=== PATIENT | female | born 1955 | race Caucasian/White ===

== ENCOUNTER 2020-12-07 15:58 | Inpatient (IN) | payer SELFPAY ==
[2020-12-07 18:14] LABS: BASO % 0.9 % (0-2.0); EOS % 1.5 % (0-4.5); HEMATOCRIT 38.9 % (32.4-45.2); HEMOGLOBIN 12.5 GM/dL (10.7-15.3); LYMPH % 29.3 % (8-40); MCH 26.4 pg (25.7-33.7); MCHC 32.1 g/dl (32.0-36.0); MEAN CELL VOLUME 82.1 fl (80-96); MEAN PLT VOLUME 8.8 fl (7.5-11.1); MONO % 6.2 % (3.8-10.2); NEUT % 62.1 % (42.8-82.8); PLATELET COUNT 216 10^3/uL (134-434); RBC 4.74 M/mm3 (3.60-5.2); RDW 17.1 % (11.6-15.6); WHITE BLOOD COUNT 7.6 K/mm3 (4.0-10.0)
[2020-12-07 18:21] LABS: CHLORIDE 108 mmol/L (98-107); SODIUM 142 mmol/L (136-145)
[2020-12-07 18:23] LABS: CALCIUM 8.9 mg/dL (8.5-10.1)
[2020-12-07 18:24] LABS: ALBUMIN 3.5 g/dl (3.4-5.0); ANION GAP 8 MMOL/L (8-16); BLOOD UREA NITROGEN 14.3 mg/dL (7-18); CO2 26 mmol/L (21-32); GLUCOSE,RANDOM 94 mg/dL (74-106)
[2020-12-07 18:27] LABS: CREATININE 0.9 mg/dL (0.55-1.3); SGOT/AST 38 U/L (15-37); SGPT/ALT 45 U/L (13-61)
[2020-12-07 18:29] LABS: BILIRUBIN,TOTAL 0.6 mg/dL (0.2-1); TOT PROT 8.4 g/dl (6.4-8.2)
[2020-12-07 18:30] LABS: ALK PHOS 66 U/L (45-117)
[2020-12-07 18:32] LABS: N-TERMINAL BNP 1635.1 pg/ml (5-125)
[2020-12-08 00:30] VITALS: BMI 38.7
[2020-12-08 08:17] LABS: BASO % 0.5 % (0-2.0); EOS % 1.9 % (0-4.5); HEMATOCRIT 40.7 % (32.4-45.2); HEMOGLOBIN 13.1 GM/dL (10.7-15.3); LYMPH % 36.8 % (8-40); MCH 26.7 pg (25.7-33.7); MCHC 32.1 g/dl (32.0-36.0); MEAN CELL VOLUME 83.2 fl (80-96); MEAN PLT VOLUME 9.5 fl (7.5-11.1); MONO % 5.7 % (3.8-10.2); NEUT % 55.1 % (42.8-82.8); PLATELET COUNT 202 10^3/uL (134-434); RDW 17.5 % (11.6-15.6); WHITE BLOOD COUNT 7.3 K/mm3 (4.0-10.0)
[2020-12-08 08:42] LABS: CALCIUM 8.8 mg/dL (8.5-10.1)
[2020-12-08 08:43] LABS: ALBUMIN 3.5 g/dl (3.4-5.0); BLOOD UREA NITROGEN 14.4 mg/dL (7-18); MAGNESIUM 2.3 mg/dL (1.8-2.4)
[2020-12-08 08:46] LABS: CREATININE 0.9 mg/dL (0.55-1.3); PHOSPHOROUS 3.8 mg/dL (2.5-4.9)
[2020-12-08 08:47] LABS: TOT PROT 8.6 g/dl (6.4-8.2)
[2020-12-08] MEDS: ENOXAPARIN NA (PORCINE) 40 MG/0.4 ML DISP.SYRIN SQ SCH (09:27)
[2020-12-08] MEDS: FUROSEMIDE 40 MG/4 ML INJECTABLE VIAL IVPUSH SCH (09:28)
[2020-12-08] MEDS: LISINOPRIL 10 MG TABLET PO SCH (09:28)
[2020-12-08] MEDS: ASPIRIN COATED 81 MG TABLET.EC PO SCH (09:28)
[2020-12-08] MEDS ORDERED: PNEUMOC 13-VAL CONJ-DIP CRM/PF 0.5 ML DISP.SYRIN IM ONE (10:00)
[2020-12-08] MEDS: metoPROLOL SUCCINATE 25 MG TAB.SR.24H (FP) PO SCH (11:14)
[2020-12-08] MEDS ORDERED: FUROSEMIDE 40 MG/4 ML INJECTABLE VIAL IVPUSH ONE (14:00)
[2020-12-09] MEDS: ACETAMINOPHEN 325 MG TABLET (FP) PO PRN ×2 (01:36→21:12)
[2020-12-09 07:04] LABS: BASO % 0.4 % (0-2.0); EOS % 2.9 % (0-4.5); HEMATOCRIT 39.5 % (32.4-45.2); HEMOGLOBIN 12.6 GM/dL (10.7-15.3); LYMPH % 27.7 % (8-40); MCH 26.3 pg (25.7-33.7); MCHC 31.8 g/dl (32.0-36.0); MEAN CELL VOLUME 82.7 fl (80-96); MEAN PLT VOLUME 8.9 fl (7.5-11.1); MONO % 7.1 % (3.8-10.2); NEUT % 61.9 % (42.8-82.8); PLATELET COUNT 200 10^3/uL (134-434); RBC 4.78 M/mm3 (3.60-5.2); RDW 17.2 % (11.6-15.6); WHITE BLOOD COUNT 9.5 K/mm3 (4.0-10.0)
[2020-12-09 07:38] LABS: BLOOD UREA NITROGEN 20.1 mg/dL (7-18); CALCIUM 8.4 mg/dL (8.5-10.1)
[2020-12-09 07:39] LABS: ALBUMIN 3.2 g/dl (3.4-5.0); MAGNESIUM 2.2 mg/dL (1.8-2.4)
[2020-12-09 07:42] LABS: CREATININE 0.9 mg/dL (0.55-1.3); PHOSPHOROUS 4.4 mg/dL (2.5-4.9)
[2020-12-09 07:43] LABS: BILIRUBIN,TOTAL 0.7 mg/dL (0.2-1)
[2020-12-09 07:44] LABS: TOT PROT 7.8 g/dl (6.4-8.2)
[2020-12-09] MEDS: metoPROLOL SUCCINATE 25 MG TAB.SR.24H (FP) PO SCH (10:23)
[2020-12-09] MEDS: ASPIRIN COATED 81 MG TABLET.EC PO SCH (10:23)
[2020-12-09] MEDS: LISINOPRIL 10 MG TABLET PO SCH (10:23)
[2020-12-09] MEDS: ENOXAPARIN NA (PORCINE) 40 MG/0.4 ML DISP.SYRIN SQ SCH (10:23)
[2020-12-09] MEDS: FUROSEMIDE 40 MG/4 ML INJECTABLE VIAL IVPUSH SCH (10:23)
[2020-12-09] MEDS: SPIRONOLACTONE 25 MG TABLET PO SCH (15:53)
[2020-12-09] MEDS ORDERED: ATORVASTATIN CA 40 MG TABLET (FP) PO SCH (22:00)
[2020-12-10] MEDS ORDERED: MELATONIN 5 MG TABLETS PO PRN (00:52)
[2020-12-10 07:01] LABS: HEMATOCRIT 38.7 % (32.4-45.2); HEMOGLOBIN 12.6 GM/dL (10.7-15.3); MCH 26.6 pg (25.7-33.7); MCHC 32.5 g/dl (32.0-36.0); MEAN PLT VOLUME 8.9 fl (7.5-11.1); PLATELET COUNT 211 10^3/uL (134-434); RBC 4.72 M/mm3 (3.60-5.2); RDW 17.2 % (11.6-15.6); WHITE BLOOD COUNT 8.2 K/mm3 (4.0-10.0)
[2020-12-10 07:28] LABS: CALCIUM 8.7 mg/dL (8.5-10.1)
[2020-12-10 07:29] LABS: BLOOD UREA NITROGEN 21.1 mg/dL (7-18); MAGNESIUM 2.4 mg/dL (1.8-2.4)
[2020-12-10 07:32] LABS: CREATININE 0.9 mg/dL (0.55-1.3)
[2020-12-10] MEDS: SPIRONOLACTONE 25 MG TABLET PO SCH (09:38)
[2020-12-10] MEDS: LISINOPRIL 10 MG TABLET PO SCH (09:38)
[2020-12-10] MEDS: FUROSEMIDE 40 MG/4 ML INJECTABLE VIAL IVPUSH SCH (09:38)
[2020-12-10] MEDS: metoPROLOL SUCCINATE 25 MG TAB.SR.24H (FP) PO SCH (09:38)
[2020-12-10] MEDS: ASPIRIN COATED 81 MG TABLET.EC PO SCH (09:38)
[2020-12-10] MEDS: ENOXAPARIN NA (PORCINE) 40 MG/0.4 ML DISP.SYRIN SQ SCH (09:38)
[2020-12-10 14:39] VITALS: BP 134/67; PULSE 67; TEMP 98.2
== END 2020-12-10 18:21 | disposition home or self-care (01) | DRG 194 ==
LOC: JER 15:58 → JERBED 19:00 → OBSVTOIN 22:56 → J4S 23:49
PROVIDERS: ADMIT Internal Medicine; ATTEND Internal Medicine
DX: I11.0 Hypertensive heart disease with heart failure (principal); I50.33 Acute on chronic diastolic (congestive) heart failure; Z59.0 Homelessness; E78.5 Hyperlipidemia, unspecified; Z91.14 Patient's other noncompliance with medication regimen; Z98.61 Coronary angioplasty status; I25.119 Atherosclerotic heart disease of native coronary artery with unspecified angina pectoris; M32.9 Systemic lupus erythematosus, unspecified; J45.909 Unspecified asthma, uncomplicated; R80.9 Proteinuria, unspecified; I49.1 Atrial premature depolarization; F32.9 Major depressive disorder, single episode, unspecified
CPT/HCPCS: 36415; 71046-TC-FY; 73030-TC-RT-FY; 80048; 80053; 80061; 82550; 82962; 83721; 83735; 83880; 84100; 84436; 84443; 84484; 85025; 85027; 90670; 93005; 93010; 93306-TC; 93970-TC; 94761; 99285-25; C9803; G0378; U0003; U0005

== ENCOUNTER 2023-12-01 11:25 | Inpatient (IN) | payer OTHER ==
[2023-12-01] MEDS ORDERED: DEXAMETHASONE SOD PHOSPHATE 10 MG/1 ML VIAL ONE (16:14)
[2023-12-01] MEDS ORDERED: diphenhydrAMINE HCL 25 MG CAPSULE (FP) PO ONE (16:14)
[2023-12-01] MEDS: diphenhydrAMINE HCL 25 MG CAPSULE (FP) PO ONE (16:39)
[2023-12-01] MEDS: DEXAMETHASONE SOD PHOSPHATE 10 MG/1 ML VIAL IVPUSH ONE (16:39)
[2023-12-01 16:48] LABS: BASO % 0.2 % (0-2.0); HEMATOCRIT 38.7 % (32.4-45.2); HEMOGLOBIN 12.2 GM/dL (10.7-15.3); LYMPH % 28.1 % (8-40); MCH 25.4 pg (25.7-33.7); MCHC 31.6 g/dl (32.0-36.0); MEAN CELL VOLUME 80.2 fl (80-96); MEAN PLT VOLUME 8.7 fl (7.5-11.1); MONO % 6.3 % (3.8-10.2); NEUT % 63.4 % (42.8-82.8); PLATELET COUNT 304 10^3/uL (134-434); RBC 4.82 M/mm3 (3.60-5.2); RDW 16.7 % (11.6-15.6); WHITE BLOOD COUNT 8.3 K/mm3 (4.0-10.0)
[2023-12-01 16:54] LABS: INR 1.03 (0.83-1.09); PROTHROMBIN TIME (PATIENT) 11.8 SEC (9.7-13.0)
[2023-12-01 16:57] LABS: ACTIVATED PTT 32.9 SECONDS (25.2-36.5)
[2023-12-01 17:07] LABS: POTASSIUM 3.9 mmol/L (3.5-5.1)
[2023-12-01 17:09] LABS: ALBUMIN 3.3 g/dl (3.4-5.0); BLOOD UREA NITROGEN 8.9 mg/dL (7-18); CALCIUM 8.9 mg/dL (8.5-10.1)
[2023-12-01 17:10] LABS: MAGNESIUM 2.5 mg/dL (1.8-2.4)
[2023-12-01 17:12] LABS: CREATININE 0.6 mg/dL (0.55-1.3); PHOSPHOROUS 3.2 mg/dL (2.5-4.9)
[2023-12-01 17:14] LABS: BILIRUBIN,TOTAL 0.4 mg/dL (0.2-1); TOT PROT 8.1 g/dl (6.4-8.2)
[2023-12-01] MEDS ORDERED: ALBUTEROL SO4 HFA INHALER IH PRN (17:47)
[2023-12-01] MEDS ORDERED: FUROSEMIDE 40 MG/4 ML INJECTABLE VIAL IVPUSH SCH (17:49)
[2023-12-01] MEDS: FUROSEMIDE 40 MG/4 ML INJECTABLE VIAL IVPUSH SCH (17:56)
[2023-12-01] MEDS ORDERED: FUROSEMIDE 40 MG/4 ML INJECTABLE VIAL ONE (19:49)
[2023-12-01] MEDS: FUROSEMIDE 40 MG/4 ML INJECTABLE VIAL IVPUSH ONE (19:57)
[2023-12-01 20:47] LABS: N-TERMINAL BNP 138.4 pg/ml (5-125)
[2023-12-01] MEDS: ATORVASTATIN CA 40 MG TABLET (FP) PO SCH (22:10)
[2023-12-01] MEDS: SACUBITRIL/VALSARTAN 24 MG-26 MG TABLET PO SCH (22:10)
[2023-12-02 00:48] VITALS: BMI 34.8
[2023-12-02 08:40] LABS: HEMATOCRIT 40.1 % (32.4-45.2); HEMOGLOBIN 13.2 GM/dL (10.7-15.3); MCHC 32.8 g/dl (32.0-36.0); MEAN CELL VOLUME 79.4 fl (80-96); PLATELET COUNT 335 10^3/uL (134-434); RBC 5.06 M/mm3 (3.60-5.2); RDW 16.3 % (11.6-15.6); WHITE BLOOD COUNT 8.9 K/mm3 (4.0-10.0)
[2023-12-02 08:55] LABS: POTASSIUM 4.1 mmol/L (3.5-5.1)
[2023-12-02 09:03] LABS: CALCIUM 9.1 mg/dL (8.5-10.1)
[2023-12-02 09:04] LABS: BLOOD UREA NITROGEN 13.6 mg/dL (7-18); MAGNESIUM 2.4 mg/dL (1.8-2.4)
[2023-12-02 09:07] LABS: CREATININE 0.6 mg/dL (0.55-1.3); PHOSPHOROUS 2.6 mg/dL (2.5-4.9)
[2023-12-02] MEDS: EMPAGLIFLOZIN (JARDIANCE) 10 MG TABLET PO SCH (10:00)
[2023-12-02] MEDS ORDERED: FUROSEMIDE 40 MG/4 ML INJECTABLE VIAL IVPUSH ONE (12:30)
[2023-12-02] MEDS: SPIRONOLACTONE 25 MG TABLET PO SCH (14:22)
[2023-12-02] MEDS: FUROSEMIDE 40 MG/4 ML INJECTABLE VIAL IVPUSH SCH ×2 (14:22→18:13)
[2023-12-02] MEDS: DULoxetine HCL 20 MG CAPSULE.DR PO SCH (14:22)
[2023-12-02] MEDS: metoPROLOL SUCCINATE 25 MG TAB.SR.24H (FP) PO SCH (14:23)
[2023-12-02] MEDS: ASPIRIN COATED 81 MG TABLET.EC PO SCH (14:23)
[2023-12-02] MEDS: ENOXAPARIN NA (PORCINE) 40 MG/0.4 ML DISP.SYRIN SQ SCH (14:23)
[2023-12-02] MEDS: BACITRACIN ZINC 15 GM TUBE TOPICAL OINTMENT TP SCH (14:37)
[2023-12-02] MEDS: FUROSEMIDE 20 MG TABLET (FP) PO ONE (14:38)
[2023-12-02] MEDS ORDERED: diphenhydrAMINE HCL 25 MG CAPSULE (FP) PO PRN (14:44)
[2023-12-02] MEDS: PANTOPRAZOLE 40 MG TABLET PO ONE (15:02)
[2023-12-03 03:58] VITALS: RESP 18
[2023-12-03 08:45] LABS: HEMATOCRIT 38.6 % (32.4-45.2); HEMOGLOBIN 12.5 GM/dL (10.7-15.3); MCH 26.3 pg (25.7-33.7); MCHC 32.3 g/dl (32.0-36.0); MEAN CELL VOLUME 81.4 fl (80-96); MEAN PLT VOLUME 9.1 fl (7.5-11.1); PLATELET COUNT 311 10^3/uL (134-434); RBC 4.75 M/mm3 (3.60-5.2); RDW 16.1 % (11.6-15.6); WHITE BLOOD COUNT 12.2 K/mm3 (4.0-10.0)
[2023-12-03 08:57] VITALS: BP 126/70; PULSE 67; TEMP 98.2
[2023-12-03 09:04] LABS: POTASSIUM 3.7 mmol/L (3.5-5.1)
[2023-12-03 09:13] LABS: BLOOD UREA NITROGEN 21.9 mg/dL (7-18); CALCIUM 8.6 mg/dL (8.5-10.1); MAGNESIUM 2.3 mg/dL (1.8-2.4)
[2023-12-03 09:14] LABS: ALBUMIN 3.2 g/dl (3.4-5.0)
[2023-12-03 09:16] LABS: CREATININE 0.7 mg/dL (0.55-1.3); PHOSPHOROUS 3.4 mg/dL (2.5-4.9)
[2023-12-03 09:17] LABS: TOT PROT 8.2 g/dl (6.4-8.2)
[2023-12-03 09:18] LABS: BILIRUBIN,TOTAL 0.5 mg/dL (0.2-1)
== END 2023-12-03 12:59 | disposition home or self-care (01) | DRG 291 ==
LOC: JER 11:25 → JERBED 17:16 → J4W 20:18 → OBSVTOIN 12-02 09:35
PROVIDERS: ADMIT Internal Medicine; ATTEND Internal Medicine
DX: I11.0 Hypertensive heart disease with heart failure (principal); I50.23 Acute on chronic systolic (congestive) heart failure; M32.9 Systemic lupus erythematosus, unspecified; E78.5 Hyperlipidemia, unspecified; F32.A Depression, unspecified; K21.9 Gastro-esophageal reflux disease without esophagitis; J45.909 Unspecified asthma, uncomplicated; I25.10 Atherosclerotic heart disease of native coronary artery without angina pectoris; R21 Rash and other nonspecific skin eruption; I34.0 Nonrheumatic mitral (valve) insufficiency
CPT/HCPCS: 36415; 71045-TC-FY; 80048; 80053; 80061; 83036; 83735; 83880; 84100; 84439; 84443; 84484; 85025; 85027; 85610; 85730; 93005; 93010; 99285-25; G0378; J1100